=== PATIENT | male | born 1970 | race Caucasian/White ===

== ENCOUNTER 2017-05-12 19:32 | Emergency (ER) | payer OTHER ==
[~2017-05-12] VITALS: Ht 182.9 cm; Wt 120.4 kg
[2017-05-12 20:02] LABS: HEMATOCRIT 44.4 % (38.0-50.0); MCH 33.5 PG (29.0-34.0); MCHC 36.3 G/DL (30.0-36.0); MCV 92.5 FL (86-99); MEAN PLAT.VOLUME 9.7 uM^3 (9.0-12.4); PLATELET COUNT 198 K/uL (156-360); RBC DIS.WIDTH-CV 12.1 % (11.8-14.6); RBC DIS.WIDTH-SD 41.3 % (39-53); WHITE BLOOD COUNT 6.6 K/uL (4.1-10.2)
[2017-05-12 20:20] LABS: CHLORIDE 106 mEq/L (99-109); POTASSIUM 4.4 mEq/L (3.7-5.4); SODIUM 142 mEq/L (136-147)
[2017-05-12 20:21] LABS: GLUCOSE 141 mg/dL (70-99)
[2017-05-12 20:23] LABS: ANION GAP 11 MEQ/L (2-14); TROP-I INTERPRETATION NEGATIVE; TROPONIN-I < 0.01 ng/mL (0.0-0.30)
[2017-05-12 20:25] LABS: GFR ESTIMATE (CALCULATED) > 59 mL/min/
[2017-05-12 20:26] LABS: UREA NITROGEN (BUN) 23 mg/dL (9-23)
[2017-05-12] MEDS ORDERED: VENTOLIN HFA18 GM IH (21:19)
[2017-05-12] MEDS ORDERED: LISINOPRIL-HCT1 EACH PO (21:21)
[2017-05-12] MEDS ORDERED: VENLAFAXINE HC150 M1 PO (21:22)
[2017-05-12] MEDS ORDERED: METHYLPHENIDATE20 M1 PO (21:23)
[2017-05-12 22:39] LABS: D-DIMER ELISA 0.19 mg/L FEU (< 0.57)
[2017-05-12] MEDS ORDERED: ATIVAN1 MG PO (23:31)
[2017-05-12 23:41] VITALS: BP 130/83
== END 2017-05-12 23:42 | disposition home or self-care (01) ==
LOC: EME 19:32 → EXP 19:32
DX: F41.9 Anxiety disorder, unspecified (principal); F43.9 Reaction to severe stress, unspecified; R06.00 Dyspnea, unspecified; I10 Essential (primary) hypertension
CPT/HCPCS: 71020; 80048; 84484; 85027; 85379; 93005; 99281; 99284